=== PATIENT | male | born 2000 | race Caucasian/White ===

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

== ENCOUNTER 2020-01-03 15:18 | Emergency (ER) | payer BC ==
[~2020-01-03] VITALS: Ht 172.7 cm; Wt 65.9 kg
[2020-01-03 15:20] VITALS: BP 122/64
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
[2020-01-03] MEDS ORDERED: NEOSPORIN OINT. PKT 1 PACKET ONE ×2 (15:38→16:22)
[2020-01-03] MEDS ORDERED: LIDOCAINE-MPF 1%, 5ML ONE ×2 (15:38→16:02)
--- NOTE | 2020-01-03 15:39 | NUR ---
LIDOCAINE GIVEN TO PROVIDER FOR ADMINISTRATION
--- NOTE | 2020-01-03 15:50 | NUR ---
TECHNOLOGY RISK INTERN BS FOR IRRIGATION
[2020-01-03] MEDS ORDERED: DIPH,PERTUSS(ACELL),TET VAC/PF 0.5 ML IM-VACC ONE ×2 (16:00→16:41)
[2020-01-03] MEDS ORDERED: LIDOCAINE-MPF 1%, 5ML INFIL ONE (16:00)
--- NOTE | 2020-01-03 16:12 | NUR ---
PROVIDER BS FOR SUTURING
--- NOTE | 2020-01-03 16:27 | NUR ---
EVELYNE PEÑA AT FOR WOUND DRESSING.
--- NOTE | 2020-01-03 16:45 | NUR ---
DC'D PER MO PENA.
--- NOTE | 2020-01-03 16:51 | NUR ---
Patient given discharge instructions and they have confirmed that they understand the instructions. Patient ambulatory with steady gait.
== END 2020-01-03 16:52 | disposition home or self-care (01) ==
LOC: ED 16:38
DX: S61.210A Laceration without foreign body of right index finger without damage to nail, initial encounter (principal); X58.XXXA Exposure to other specified factors, initial encounter; Y93.89 Activity, other specified; Y92.098 Other place in other non-institutional residence as the place of occurrence of the external cause; Y99.8 Other external cause status
CPT/HCPCS: 12041; 90471; 90715; 99284

== ENCOUNTER 2020-05-09 09:26 | Emergency (ER) | payer BC ==
[~2020-05-09] VITALS: Ht 170.2 cm; Wt 67.4 kg
[2020-05-09 09:30] VITALS: BP 122/76
== END 2020-05-09 10:08 | disposition home or self-care (01) ==
LOC: ED 09:54
DX: R10.30 Lower abdominal pain, unspecified (principal); F10.10 Alcohol abuse, uncomplicated; F17.200 Nicotine dependence, unspecified, uncomplicated; Y90.9 Presence of alcohol in blood, level not specified
CPT/HCPCS: 99281

== ENCOUNTER 2020-06-17 13:11 | Emergency (ER) | payer BC ==
[~2020-06-17] VITALS: Ht 170.2 cm; Wt 65.5 kg
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
[2020-06-17] MEDS ORDERED: HYDROcodone/APAP 5/325 TABLET PO ONE (14:00)
[2020-06-17] MEDS ORDERED: HYDROcodone/APAP 5/325 TABLET ONE (14:02)
[2020-06-17 14:05] LABS: BASOPHILS % (AUTO) 0 % (0-1); EOSINOPHILS % (AUTO) 1 % (1-7); LYMPHOCYTES % (AUTO) 10 % (22-44); MEAN CORPUSCULAR HEMOGLOBIN 31.4 pg (27.5-34.5); MEAN CORPUSCULAR HGB CONC 34.5 g/dL (33.2-36.2); MEAN PLATELET VOLUME 8.8 fL (7.4-10.4); MONOCYTES % (AUTO) 7 % (2-9); NEUTROPHILS % (AUTO) 82 % (42-75); PLATELET COUNT 214 x10^3/uL (130-400); RED BLOOD COUNT 5.02 x10^6/uL (4.38-5.82); RED CELL DISTRIBUTION WIDTH 12.6 % (9.4-14.8)
--- NOTE | 2020-06-17 14:10 | NUR ---
PATIENT TO IMAGING.
[2020-06-17 14:13] LABS: MD NO
[2020-06-17 14:16] LABS: ALBUMIN 4.3 g/dL (3.4-5.0); ANION GAP 11 mmol/L (5-15); CALCIUM 9.2 mg/dL (8.5-10.1); CHLORIDE 107 mmol/L (98-107); CREATININE 1.16 mg/dL (0.7-1.3)
--- NOTE | 2020-06-17 14:26 | NUR ---
PATIENT BACK FROM IMAGING, RESTING IN GURNEY WATCHING TV, MEDICATED PER eMAR, CRACKERS PROVIDED TO PATIENT, CONNECTED TO CARE AID, CALL LIGHT WITHIN REACH, NO FURTHER NEEDS AT THIS TIME.
--- NOTE | 2020-06-17 15:51 | NUR ---
PATIENT RESTING IN GURNEY, WATCHING TV, ZAC DISCUSSED POC WITH PATIENT. WAITING FOR D/C PAPERWORK.
[2020-06-17 16:08] VITALS: BP 93/52
--- NOTE | 2020-06-17 16:09 | NUR ---
Patient given discharge instructions and prescription and they have confirmed that they understand the instructions, controlled substance agreement signed. Patient stable and ambulatory with steady gait from ED to private vehicle.
== END 2020-06-17 16:10 | disposition home or self-care (01) ==
LOC: ED 15:18
DX: S80.02XA Contusion of left knee, initial encounter (principal); G89.11 Acute pain due to trauma; M54.5 Low back pain; Y04.8XXA Assault by other bodily force, initial encounter; Y93.89 Activity, other specified; Y92.098 Other place in other non-institutional residence as the place of occurrence of the external cause; Y99.8 Other external cause status
CPT/HCPCS: 36415; 72110; 80048; 82040; 85025; 99284

== ENCOUNTER 2020-06-20 12:58 | Emergency (ER) | payer BC ==
[~2020-06-20] VITALS: Ht 172.7 cm; Wt 66.0 kg
[2020-06-20] MEDS ORDERED: ONDANSETRON 2MG/ML, 2ML IVPush ONE ×2 (14:30→16:30)
[2020-06-20] MEDS ORDERED: SODIUM CHLORIDE 0.9% 1,000ML IVBOLUS ONE (14:30)
[2020-06-20] MEDS ORDERED: MORPHINE SULFATE 4 MG/ML, 1ML IVPush PRN (14:30)
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
[2020-06-20] MEDS ORDERED: ONDANSETRON 2MG/ML, 2ML ONE (14:48)
[2020-06-20] MEDS ORDERED: LORazepam 2 MG/ML, 1ML ONE (14:50)
[2020-06-20] MEDS ORDERED: LORazepam 2 MG/ML, 1ML IVPush ONE (15:00)
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
[2020-06-20] MEDS ORDERED: HYDR-3240 PO (15:02)
--- NOTE | 2020-06-20 15:04 | NUR ---
pT MEDICATED, TOLERATED WELL, PAIN IS IMPROVING, PENDING LAB RESULTS.
--- NOTE | 2020-06-20 16:30 | NUR ---
CAMRYN HERE TO SPEAK WITH PT.
[2020-06-20 16:58] VITALS: BP 108/51
--- NOTE | 2020-06-20 16:59 | NUR ---
Patient discharged home, pt states he has a ride home, he ambulates with even steady gait in no acute distress. Pt is aware of community resources available to help with anxiety, [facility] number provided on discharge instructions and behavioral health services.
== END 2020-06-20 17:03 | disposition home or self-care (01) ==
LOC: ED 15:37
DX: F41.1 Generalized anxiety disorder (principal); K64.8 Other hemorrhoids; R10.84 Generalized abdominal pain; Y04.0XXA Assault by unarmed brawl or fight, initial encounter; Y93.89 Activity, other specified; Y92.89 Other specified places as the place of occurrence of the external cause; Y99.8 Other external cause status
CPT/HCPCS: 96374; 96375; 99284; J2060; J2405; 99285

== ENCOUNTER 2021-02-17 00:30 | Emergency (ER) | payer BC ==
[~2021-02-17] VITALS: Ht 172.7 cm; Wt 65.9 kg
[~2021-02-17 00:30] MED LIST: HYDR-2214 PO
[2021-02-17 00:43] VITALS: BP 126/89
[2021-02-17 01:24] LABS: ANION GAP 9 mmol/L (5-15); CALCIUM 8.9 mg/dL (8.5-10.1); CHLORIDE 111 mmol/L (98-107); CREATININE 0.89 mg/dL (0.7-1.3)
[2021-02-17 01:25] LABS: ALBUMIN 4.3 g/dL (3.4-5.0)
[2021-02-17 01:26] LABS: BASOPHILS % (AUTO) 1 % (0-1); EOSINOPHILS % (AUTO) 0 % (1-7); LYMPHOCYTES % (AUTO) 8 % (22-44); MEAN CORPUSCULAR HEMOGLOBIN 32.2 pg (27.5-34.5); MEAN CORPUSCULAR HGB CONC 35.1 g/dL (33.2-36.2); MEAN PLATELET VOLUME 8.3 fL (7.4-10.4); MONOCYTES % (AUTO) 3 % (2-9); NEUTROPHILS % (AUTO) 89 % (42-75); PLATELET COUNT 197 x10^3/uL (130-400); RED BLOOD COUNT 5.27 x10^6/uL (4.38-5.82)
== END 2021-02-17 02:38 ==
LOC: ED 01:00
DX: F10.129 Alcohol abuse with intoxication, unspecified (principal); T51.0X1A Toxic effect of ethanol, accidental (unintentional), initial encounter; F17.200 Nicotine dependence, unspecified, uncomplicated; Y90.0 Blood alcohol level of less than 20 mg/100 ml
CPT/HCPCS: 36415; 80048; 80320; 82040; 85025; 99283; G0480